=== PATIENT | male | born 1965 | race African-American/Black ===

== ENCOUNTER 2018-11-22 17:50 | Emergency (ER) | payer OTHER ==
--- NOTE | 2018-11-22 19:30 | UC ---
Back Pain HPI - HPI Summary HPI Summary: Mr. Armstrong has had some problems with his low back especially when working on a certain machine at [facility]. He was on that machine yesterday and his back started hurting. He tried warm soaks last night but it still hurts to move. - History of Current Complaint Stated Complaint: BACK PAIN Time Seen by Provider: 11/22/18 19:24 Hx Obtained From: Patient Onset/Duration: Gradual Onset Timing: Constant Severity Initially: Mild Severity Currently: Moderate Character: Aching, Spasmodic Aggravating Factor(s): Movement, Lifting, Bending, Walking Alleviating Factor(s): Nothing Associated Signs And Symptoms: Positive: Negative - Allergies/Home Medications Allergies/Adverse Reactions: Allergies Allergy/AdvReac Type Severity Reaction Status Date / Time No Known Allergies Allergy Verified 11/22/18 19:33 Home Medications: Home Medications NK [No Home Medications Reported] 11/22/18 [History Confirmed 11/22/18] PMH/Surg Hx/FS Hx/Imm Hx Previously Healthy: Yes Review of Systems All Other Systems Reviewed And Are Negative: Yes Genitourinary: Positive: Negative Neurovascular: Positive: Negative Musculoskeletal: Positive: Negative - no weakness Neurological: Positive: Negative Physical Exam - Summary Physical Exam Summary: He is non-toxic in appearance with stable vitals. He is in obvious discomfort. Triage Information Reviewed: Yes Appearance: Pain Distress Vital Signs Reviewed: Yes Musculoskeletal: Positive: Other: - positive straight leg reproducing the pain bilaterally without radiation. Distal N/V/M intact. Neurological Exam: Normal Psychological Exam: Normal Back Pain Course/Dx - Course Course Of Treatment: Mr. Armstrong has an acute low back strain. I offered him symptomatic treatment here at [facility] but he would prefer to go home. He doesn't want a muscle relaxer but will take ibuprofen. - Differential Dx/Diagnosis Provider Diagnosis: Repetitive strain injury of lower back Discharge - Sign-Out/Discharge Documenting (check all that apply): Patient Departure All imaging exams completed and their final reports reviewed: No Studies - Discharge Plan Condition: Stable Disposition: HOME Patient Education Materials: Low Back Strain (ED) Forms: *Work Release Referrals: No Primary Care Phys,NOPCP [Primary Care Provider] - - Billing Disposition and Condition Condition: STABLE Disposition: Home
[2018-11-22 19:33] VITALS: BP 117/65
== END 2018-11-22 20:18 | disposition home or self-care (01) ==
LOC: UCEAST 17:50
DX: S39.012A Strain of muscle, fascia and tendon of lower back, initial encounter (principal); X50.3XXA Overexertion from repetitive movements, initial encounter; Y92.63 Factory as the place of occurrence of the external cause; Y99.0 Civilian activity done for income or pay
CPT/HCPCS: 99211; G0463